=== PATIENT | male | born 1990 | race Caucasian/White ===

== ENCOUNTER → 2023-04-18 | Outpatient (CLI) | payer OTHER | LOC: WCC 09:32 | PROVIDERS: ATTEND Internal Medicine Infectious Disease | DX: S81.802A Unspecified open wound, left lower leg, initial encounter (principal); R60.0 Localized edema; L98.8 Other specified disorders of the skin and subcutaneous tissue ==

== ENCOUNTER → 2023-04-25 | Outpatient (CLI) | payer OTHER | LOC: WCC 10:38 | PROVIDERS: ATTEND Internal Medicine Infectious Disease | DX: S81.802A Unspecified open wound, left lower leg, initial encounter (principal) ==

== ENCOUNTER → 2023-05-02 | Outpatient (CLI) | payer OTHER | LOC: WCC 10:52 | PROVIDERS: ATTEND Internal Medicine Infectious Disease | DX: S81.802A Unspecified open wound, left lower leg, initial encounter (principal) ==